=== PATIENT | male | born 1980 | race African-American/Black ===

== ENCOUNTER 2018-06-24 07:20 | Day surgery (SDC) | payer OTHER ==
[~2018-06-24] VITALS: Ht 175.3 cm; Wt 109.8 kg
[2018-06-24] MEDS ORDERED: SODIUM CHLORIDE LOCK 10 ML ONE (07:54)
[2018-06-24] MEDS ORDERED: diphenhdrAMINE HCL 50 MG/1 ML VL ONE (07:54)
[2018-06-24 09:43] LABS: Basophils # (auto) 0 uL; Basophils % (auto) 0.7 % (0.0-2.0); Eosinophils # (auto) 0 uL; Eosinophils % (auto) 0.7 % (0.0-7.0); Hematocrit 45.4 % (41.0-53.0); Hemoglobin 15.4 g/dL (13.5-17.5); Lymphocytes # (auto) 1.1 uL; Mean Corpuscular Hemoglobin 30.9 pg (28.0-32.0); Mean Corpuscular Hgb Conc. 33.9 g/dL (32.0-36.0); Monocytes # (auto) 0.4 uL; Monocytes % (auto) 11.7 % (0.0-12.0); Neutrophils # (auto) 1.9 uL; Neutrophils % (auto) 55.9 % (37.0-80.0); Nucleated Red Blood Cells % 0.1 %; Platelet Count (auto) 181 10^3/uL (140-450); Red Blood Cells 4.98 10^6/uL (4.5-5.90); Red Cell Distribution Width 13.4 % (11.8-14.3); White Blood Cell 3.4 10^3/uL (4.4-10.8)
[2018-06-24 09:54] LABS: INR 1.07 (0.9-1.15); Partial Thromboplastin Time 27.4 sec (23.78-33.04); Prothrombin Time 11.4 sec (9.27-12.13)
[2018-06-24] MEDS: MIDAZOLAM HCL 5 MG/ML-1ML VIAL ONE ×3 (10:53→11:00)
[2018-06-24] MEDS: fentaNYL CITRATE 100 MCG/2 ML VL ONE ×2 (10:53→10:56)
[2018-06-24 11:45] VITALS: BP 153/117
== END 2018-06-24 11:12 | disposition home or self-care (01) ==
LOC: GI 07:20
PROVIDERS: ATTEND Internal Medicine Gastroenterology
DX: K63.5 Polyp of colon (principal); K64.8 Other hemorrhoids; I10 Essential (primary) hypertension; G40.909 Epilepsy, unspecified, not intractable, without status epilepticus; L30.9 Dermatitis, unspecified; Z88.0 Allergy status to penicillin; Z80.0 Family history of malignant neoplasm of digestive organs; Z79.899 Other long term (current) drug therapy
CPT/HCPCS: 36415; 45380; 85025; 85610; 85730; 88305; 88313; 88342; 99152; J1200; J2250; J3010; J7030